=== PATIENT | male | born 1975 | race Native Hawaiian/Other Pacific Islander ===

== ENCOUNTER 2018-01-29 10:57 | Outpatient (CLI) | payer BC | END 2018-01-29 20:33 | disposition home or self-care (01) | LOC: RAD 10:57 | DX: M54.12 Radiculopathy, cervical region (principal) ==

== ENCOUNTER 2018-01-31 14:42 | Outpatient (CLI) | payer BC | END 2018-01-31 21:17 | disposition home or self-care (01) | LOC: MRI 14:42 | DX: M47.812 Spondylosis without myelopathy or radiculopathy, cervical region (principal) ==

== ENCOUNTER 2018-09-11 07:42 | Day surgery (SDC) | payer BC ==
[~2018-09-11] VITALS: Ht 30.5 cm; Wt 0.5 kg
== END 2018-09-11 08:50 | disposition home or self-care (01) ==
LOC: OR 07:42
PROC: 3E0R33Z Introduction of Anti-inflammatory into Spinal Canal, Percutaneous Approach (ICD-10-PCS; principal; 2018-09-11)
PROC: B01BYZZ Fluoroscopy of Spinal Cord using Other Contrast (ICD-10-PCS; 2018-09-11)
DX: M50.123 Cervical disc disorder at C6-C7 level with radiculopathy (principal)
CPT/HCPCS: J1020; J2001

== ENCOUNTER 2019-01-04 09:25 | Outpatient (CLI) | payer BC | END 2019-01-04 22:15 | disposition home or self-care (01) | LOC: RAD 09:25 | DX: M54.12 Radiculopathy, cervical region (principal) ==

== ENCOUNTER 2020-03-06 09:24 | Outpatient (CLI) | payer BC | END 2020-03-06 19:01 | disposition home or self-care (01) | LOC: MRI 09:24 | PROVIDERS: ATTEND Pain Medicine Interventional Pain Medicine | DX: M96.1 Postlaminectomy syndrome, not elsewhere classified (principal) | CPT/HCPCS: 36415; 82565; 84520; A9576 ==

== ENCOUNTER 2020-04-13 10:00 | Outpatient (CLI) | payer BC | END 2020-04-13 19:32 | disposition home or self-care (01) | LOC: EMG 10:00 | PROVIDERS: ATTEND Pain Medicine Interventional Pain Medicine | DX: G56.03 Carpal tunnel syndrome, bilateral upper limbs (principal) | CPT/HCPCS: 95860; 95910 ==